=== PATIENT | male | born 1995 | race Caucasian/White ===

== ENCOUNTER → 2016-10-30 | Outpatient (CLI) | payer BC ==
--- NOTE | 2016-10-30 14:24 | MAMMOGRAPHY REPORT ---
MALE BILATERAL DIGITAL DIAGNOSTIC MAMMOGRAM TOMOSYNTHESIS WITH CAD AND TARGETED BILATERAL ULTRASOUND : 10/30/2016 CLINICAL HISTORY: 21-year-old male who reported lumps in both breasts since the age of 15, which are becoming increasingly prominent/increasing in size. No skin changes or nipple discharge. No famil y history of breast cancer. TECHNIQUE: Breast tomosynthesis in addition to standard 2D mammography was performed. Current study was also evaluated with a Computer Aided Detection (CAD) system. COMPARISON: No prior exams were available for comparison. BREAST COMPOSITION: The breast parenchyma is extremely dense, lowering the sensitivity of mammograp hy. FINDINGS: There is diffuse breast tissue development bilaterally, compatible with gynecomastia. A c ircumscribed lobulated 6.4 mm mass with feeding vessel and lucent center is identified in the superi or posterior left breast projecting over the pectoralis muscle, compatible with a benign intramammar y lymph node. No suspicious mass, architectural distortion or cluster of microcalcifications is see n. Targeted ultrasound was performed throughout each breast including the retroareolar breast in the ar ea of visible and palpable concern pointed out by the patient. There is a large amount of dense fib roglandular tissue throughout each breast. No underlying solid or cystic mass is identified. IMPRESSION: ACR BI-RADS CATEGORY 2: BENIGN, TARGETED ULTRASOUND ACR BI-RADS CATEGORY 2: BENIGN There is diffuse bilateral gynecomastia. No underlying mammographic or sonographic abnormality or e vidence of malignancy is identified. Clinical follow-up and/or surgical consultation is recommended . These results and recommendations were discussed with the patient at the time of the exam. Approximately 10% of breast cancers are not detected with mammography. A negative mammographic repor t should not delay biopsy if a clinically suggestive mass is present. Kiya Mendenhall M.D. ay/:10/30/2016 09:52:28 [employer]: Lanie Olmedo, [facility] letter sent: Normal /2 BI-RADS Code: ACR BI-RADS Category 2: Benign Ultrasound BI-RADS: ACR BI-RADS Category 2: Benign
== END | disposition home or self-care (01) ==
LOC: C.MAMM 08:52
PROVIDERS: ATTEND Surgery
DX: N63 Unspecified lump in breast (principal); N62 Hypertrophy of breast